=== PATIENT | female | born 1980 | race Caucasian/White ===

== ENCOUNTER 2024-03-26 21:43 | Emergency (ER) | payer BC, OTHER ==
[~2024-03-26] VITALS: Ht 149.9 cm; Wt 99.8 kg
[2024-03-26 22:21] VITALS: BP_SYST 132; PULSE 73; RESP 18; TEMP 97.8; O2SAT 96
[2024-03-26] MEDS: LIDOCAINE 1% 10 MG/ML, 20 ML MDV SUBCUT ONE (23:17)
[2024-03-26] MEDS: DIPHTH,PERTUSS(ACELL),TET VAC 0.5 ML VIAL (Tdap) I.M. ONE (23:44)
[2024-03-26 23:54] VITALS: BP_SYST 132; PULSE 73; RESP 18; TEMP 97.8; O2SAT 96
== END 2024-03-26 23:51 | disposition home or self-care (01) ==
LOC: SED 21:43
DX: S51.812A Laceration without foreign body of left forearm, initial encounter (principal); Z23 Encounter for immunization; W25.XXXA Contact with sharp glass, initial encounter; Y93.89 Activity, other specified; Y92.89 Other specified places as the place of occurrence of the external cause; Y99.8 Other external cause status
CPT/HCPCS: 90715; 99283